=== PATIENT | female | born 1950 | race African-American/Black ===

== ENCOUNTER → 2018-02-05 | Outpatient (CLI) | payer BC | END | disposition home or self-care (01) | LOC: RAD 14:43 | PROVIDERS: ATTEND Internal Medicine Critical Care Medicine | DX: S22.31XA Fracture of one rib, right side, initial encounter for closed fracture (principal); X58.XXXA Exposure to other specified factors, initial encounter; Y93.89 Activity, other specified; Y92.89 Other specified places as the place of occurrence of the external cause; Y99.8 Other external cause status | CPT/HCPCS: 71046; 71101 ==

== ENCOUNTER → 2018-03-13 | Outpatient (CLI) | payer BC | END | disposition home or self-care (01) | LOC: MAMMO 09:38 | PROVIDERS: ATTEND Internal Medicine Critical Care Medicine | DX: Z12.31 Encounter for screening mammogram for malignant neoplasm of breast (principal) | CPT/HCPCS: 77067 ==